=== PATIENT | male | born 1980 | race Caucasian/White ===

== ENCOUNTER 2018-03-04 11:07 | Emergency (ER) | payer MEDICARE, MEDICAID ==
[~2018-03-04] VITALS: Ht 177.8 cm; Wt 77.0 kg
[~2018-03-04 11:07] MED LIST: BUPR1FIL3 PO; CLON0.1T20 PO; DIVA250T8 PO; HYDR-3686 PO; IBUP-1984 PO; LITH150C8 PO; NICO-687 TD; OMEP-50 PO; QUET100T33 PO
[2018-03-04 11:29] LABS: BASOPHILS % (AUTO) 0.7 % (0-1); EOSINOPHILS # (AUTO) 0.1 X10'3 (0-0.9); EOSINOPHILS % (AUTO) 1.6 % (0-6); HEMATOCRIT 43.3 % (42.0-52.0); HEMOGLOBIN 15.1 g/dl (14.0-17.9); LYMPHOCYTES # (AUTO) 2.1 X10'3 (1.1-4.8); MEAN CORPUSCULAR HGB CONC 34.8 % (33.0-36.5); MEAN PLATELET VOLUME 10.2 FL (7.4-10.4); MONOCYTES # (AUTO) 0.4 X10'3 (0-0.9); MONOCYTES % (AUTO) 5.7 % (2-12); NEUTROPHILS # (AUTO) 3.6 X10'3 (1.8-7.7); PLATELET COUNT 201 X10'3 (140-440); RED BLOOD COUNT 5.04 X10'6 (4.70-6.10); RED CELL DISTRIBUTION WIDTH 13.9 % (11.5-14.5); WHITE BLOOD COUNT 6.3 X10'3 (4.5-11.0)
[2018-03-04 11:39] LABS: PARTIAL THROMBOPLASTIN TIME 25 SECONDS (22-32); PROTHROMBIN TIME 10.1 SECONDS (9.0-12.0)
[2018-03-04 11:43] LABS: ALANINE AMINOTRANSFERASE 49 U/L (12-78); ALKALINE PHOSPHATASE 85 IU/L (46-116); ANION GAP 7 (8-16); ASPARTATE AMINO TRANSFERASE 20 U/L (10-37); BILIRUBIN,TOTAL 0.3 MG/DL (0.1-1.0); BLOOD UREA NITROGEN 16 MG/DL (7-18); BUN/CREATININE RATIO 16.2 (5.4-32.0); CALCIUM 9.5 MG/DL (8.5-10.1); CHLORIDE 105 MMOL/L (99-107); CREATININE 0.99 MG/DL (0.60-1.10); GLUCOSE 82 MG/DL (70-104); POTASSIUM 4.8 MMOL/L (3.5-5.1); SODIUM 142 MMOL/L (135-145); TOTAL CARBON DIOXIDE 29.7 MMOL/L (24-32); TOTAL PROTEIN 8.1 G/DL (6.4-8.2); eGFR 85 ML/MIN
[2018-03-04] MEDS ORDERED: ibuprofen tablet 400 MG TABLET PO ONE (13:25)
[2018-03-04 13:50] VITALS: BP 106/71
== END 2018-03-04 14:47 | disposition home or self-care (01) ==
LOC: ER 11:07
DX: R07.9 Chest pain, unspecified (principal); R11.0 Nausea; M25.512 Pain in left shoulder; Z88.0 Allergy status to penicillin; Z91.040 Latex allergy status; Z79.899 Other long term (current) drug therapy; F12.10 Cannabis abuse, uncomplicated; F15.10 Other stimulant abuse, uncomplicated; F11.10 Opioid abuse, uncomplicated; Z95.1 Presence of aortocoronary bypass graft; Z90.49 Acquired absence of other specified parts of digestive tract
CPT/HCPCS: 36415; 71045; 80053; 84484; 85025; 85610; 85730; 93005; 99285

== ENCOUNTER 2018-05-15 12:12 | Emergency (ER) | payer MEDICARE, MEDICAID ==
[~2018-05-15] VITALS: Ht 177.8 cm; Wt 95.0 kg
[2018-05-15 13:04] LABS: BASOPHILS % (AUTO) 0.6 % (0-1); EOSINOPHILS # (AUTO) 0.3 X10'3 (0-0.9); EOSINOPHILS % (AUTO) 3.9 % (0-6); HEMATOCRIT 43.4 % (42.0-52.0); HEMOGLOBIN 14.9 g/dl (14.0-17.9); LYMPHOCYTES # (AUTO) 2.8 X10'3 (1.1-4.8); LYMPHOCYTES % (AUTO) 34.6 % (21-51); MEAN CORPUSCULAR HEMOGLOBIN 29.7 PG (27.0-31.0); MEAN CORPUSCULAR HGB CONC 34.3 % (33.0-36.5); MEAN CORPUSCULAR VOLUME 86.8 FL (78-98); MEAN PLATELET VOLUME 9.7 FL (7.4-10.4); MONOCYTES # (AUTO) 0.6 X10'3 (0-0.9); MONOCYTES % (AUTO) 7.5 % (2-12); NEUTROPHILS # (AUTO) 4.4 X10'3 (1.8-7.7); NEUTROPHILS % (AUTO) 53.4 % (42-75); PLATELET COUNT 282 X10'3 (140-440); RED CELL DISTRIBUTION WIDTH 13.4 % (11.5-14.5); WHITE BLOOD COUNT 8.2 X10'3 (4.5-11.0)
[2018-05-15 13:12] LABS: PROTHROMBIN TIME 10.4 SECONDS (9.0-12.0)
[2018-05-15 13:17] LABS: ALANINE AMINOTRANSFERASE 30 U/L (12-78); ALKALINE PHOSPHATASE 89 IU/L (46-116); ANION GAP 7 (8-16); ASPARTATE AMINO TRANSFERASE 20 U/L (10-37); BILIRUBIN,TOTAL 0.3 MG/DL (0.1-1.0); BLOOD UREA NITROGEN 23 MG/DL (7-18); BUN/CREATININE RATIO 22.1 (5.4-32.0); CALCIUM 9.5 MG/DL (8.5-10.1); CHLORIDE 100 MMOL/L (99-107); CREATININE 1.04 MG/DL (0.60-1.10); GLUCOSE 113 MG/DL (70-104); POTASSIUM 3.9 MMOL/L (3.5-5.1); SODIUM 136 MMOL/L (135-145); TOTAL CARBON DIOXIDE 29.1 MMOL/L (24-32); eGFR 80 ML/MIN
[2018-05-15] MEDS ORDERED: ketorolac trometh inj. 60 MG/2 ML VIAL IM ONE (14:05)
[2018-05-15 14:40] LABS: CLARITY,URINE CLEAR (Clear); COLOR,URINE YELLOW (Yellow); GLUCOSE, URINE NEGATIVE (Neg); KETONES,URINE NEGATIVE (Neg); LEUKOCYTE ESTERASE ,URINE NEGATIVE (Neg); NITRITES, URINE NEGATIVE (Neg); OCCULT BLOOD,URINE NEGATIVE (Neg); PROTEIN,URINE NEGATIVE (Neg); UROBILINOGEN,URINE 0.2 E.U/dL (0.2-1.0)
[2018-05-15 14:45] LABS: UA COLLECTION TYPE CLN CATCH MIDSTREAM
[2018-05-15 15:33] VITALS: BP 137/72
== END 2018-05-15 15:35 | disposition home or self-care (01) ==
LOC: ER 12:13
DX: M54.5 Low back pain (principal); N23 Unspecified renal colic; I25.10 Atherosclerotic heart disease of native coronary artery without angina pectoris; I10 Essential (primary) hypertension; I25.2 Old myocardial infarction; J45.909 Unspecified asthma, uncomplicated; F12.90 Cannabis use, unspecified, uncomplicated; F15.90 Other stimulant use, unspecified, uncomplicated; Z86.73 Personal history of transient ischemic attack (TIA), and cerebral infarction without residual deficits; Z90.49 Acquired absence of other specified parts of digestive tract; Z98.890 Other specified postprocedural states; Z88.0 Allergy status to penicillin; Z91.040 Latex allergy status; Z79.899 Other long term (current) drug therapy
CPT/HCPCS: 36415; 80053; 81003; 85025; 85610; 96372; 99284; J1885

== ENCOUNTER 2019-11-23 14:18 | Emergency (ER) | payer MEDICARE, MEDICAID ==
[~2019-11-23] VITALS: Ht 177.8 cm; Wt 99.5 kg
[~2019-11-23 14:18] MED LIST changes: +CLON0.1T2 PO; -CLON0.1T20 PO
[2019-11-23 14:30] VITALS: BP 137/80
[2019-11-23] MEDS ORDERED: ONDA4TAB6 PO (15:02)
[2019-11-23] MEDS ORDERED: PANT20TA3 PO (15:02)
--- NOTE | 2019-11-23 15:12 | NUR ---
PT IS NAUSEATED BUT NOT CURRENTLY VOMITTING, GAVE PT A GLASS OF WATER PER PO CHALLENGE ORDERS, PT DRINKING WATER WITH NO DIFFICULTIES NOW.
--- NOTE | 2019-11-23 15:20 | NUR ---
PT DRANK ONE GLASS OF WATER APPROX 240ML AND FILLED CUP AGAIN IN ROOM, PT TOLERATED WATER WELL, GAVE PT CRACKERS
== END 2019-11-23 15:30 | disposition home or self-care (01) ==
LOC: ER 14:19
DX: A08.4 Viral intestinal infection, unspecified (principal); R11.10 Vomiting, unspecified; R10.84 Generalized abdominal pain; I25.10 Atherosclerotic heart disease of native coronary artery without angina pectoris; I10 Essential (primary) hypertension; I25.2 Old myocardial infarction; J45.909 Unspecified asthma, uncomplicated; F12.90 Cannabis use, unspecified, uncomplicated; F15.90 Other stimulant use, unspecified, uncomplicated; F11.90 Opioid use, unspecified, uncomplicated; Z90.49 Acquired absence of other specified parts of digestive tract; Z98.890 Other specified postprocedural states; Z86.73 Personal history of transient ischemic attack (TIA), and cerebral infarction without residual deficits; Z88.0 Allergy status to penicillin; Z91.040 Latex allergy status; Z79.899 Other long term (current) drug therapy
CPT/HCPCS: 99283

== ENCOUNTER 2019-12-16 11:25 | Emergency (ER) | payer MEDICARE, MEDICAID ==
[~2019-12-16] VITALS: Ht 177.8 cm; Wt 100.0 kg
[~2019-12-16 11:25] MED LIST changes: +ONDA4TAB6 PO; +PANT20TA3 PO
[2019-12-16 12:32] LABS: BASOPHILS % (AUTO) 0.3 % (0-1); EOSINOPHILS % (AUTO) 0.3 % (0-6); HEMATOCRIT 44.5 % (42.0-52.0); HEMOGLOBIN 15.5 g/dl (14.0-17.9); LYMPHOCYTES % (AUTO) 11.8 % (21-51); MEAN CORPUSCULAR HEMOGLOBIN 30.1 PG (27.0-31.0); MEAN CORPUSCULAR VOLUME 86.2 FL (78-98); MEAN PLATELET VOLUME 10.2 FL (7.4-10.4); MONOCYTES # (AUTO) 0.6 X10'3 (0-0.9); NEUTROPHILS # (AUTO) 7.2 X10'3 (1.8-7.7); NEUTROPHILS % (AUTO) 80.6 % (42-75); PLATELET COUNT 242 X10'3 (140-440); RED BLOOD COUNT 5.16 X10'6 (4.70-6.10); WHITE BLOOD COUNT 8.9 X10'3 (4.5-11.0)
[2019-12-16 12:53] LABS: ANION GAP 9 (8-16); BLOOD UREA NITROGEN 8 MG/DL (7-18); CHLORIDE 101 MMOL/L (99-107); CREATININE 0.95 MG/DL (0.60-1.10); GLUCOSE 108 MG/DL (70-104); POTASSIUM 4.8 MMOL/L (3.5-5.1); SODIUM 138 MMOL/L (135-145); TOTAL CARBON DIOXIDE 28.4 MMOL/L (24-32)
[2019-12-16 12:54] LABS: ALANINE AMINOTRANSFERASE 57 U/L (12-78); ALBUMIN 4.5 G/DL (3.4-5.0); ALBUMIN/GLOBULIN RATIO 1.3 (1.1-1.5); ALKALINE PHOSPHATASE 74 IU/L (46-116); ASPARTATE AMINO TRANSFERASE 22 U/L (10-37); BILIRUBIN,TOTAL 0.5 MG/DL (0.1-1.0); BUN/CREATININE RATIO 8.4 (5.4-32.0); CALCIUM 9.3 MG/DL (8.5-10.1); eGFR 88 ML/MIN
[2019-12-16 13:07] LABS: CLARITY,URINE CLEAR (Clear); COLOR,URINE STRAW (Yellow); GLUCOSE, URINE NEGATIVE (Neg); KETONES,URINE NEGATIVE (Neg); LEUKOCYTE ESTERASE ,URINE NEGATIVE (Neg); NITRITES, URINE NEGATIVE (Neg); OCCULT BLOOD,URINE NEGATIVE (Neg); PH,URINE 6.5 (4.8-8.0); PROTEIN,URINE NEGATIVE (Neg); UROBILINOGEN,URINE 0.2 E.U/dL (0.2-1.0)
[2019-12-16 13:08] LABS: ETHANOL < 0.010 GM/DL (0.0-0.010)
[2019-12-16 13:09] LABS: UA COLLECTION TYPE CLN CATCH MIDSTREAM
[2019-12-16 13:22] LABS: URINE AMPHETAMINE SCREEN NEGATIVE (Neg); URINE BARBITUATE SCREEN NEGATIVE (Neg); URINE BENZODIAZEPINES SCREEN NEGATIVE (Neg); URINE CANNABINOID SCREEN NEGATIVE (Neg); URINE COCAINE SCREEN NEGATIVE (Neg); URINE METHADONE SCREEN NEGATIVE (Neg); URINE OPIATE SCREEN NEGATIVE (Neg); URINE PHENCYCLIDINE SCREEN NEGATIVE (Neg)
[2019-12-16 13:35] VITALS: BP 137/91
--- NOTE | 2019-12-16 14:10 | NUR ---
PACKET FAXED TO [facility]
[2019-12-16] MEDS ORDERED: VENL150C58 PO (17:30)
[2019-12-16] MEDS ORDERED: seroquel PO (17:40)
[2019-12-16] MEDS ORDERED: DIVA500T40 PO (17:40)
[2019-12-16] MEDS ORDERED: LITH300C PO (17:40)
[2019-12-16] MEDS ORDERED: divalproex sodium PO (17:40)
[2019-12-19] MEDS ORDERED: ATOM40CA PO (11:32)
[2019-12-19] MEDS ORDERED: NICO-687 TOP (13:08)
== END 2019-12-16 17:03 ==
LOC: ER 11:26
DX: F31.9 Bipolar disorder, unspecified (principal); F79 Unspecified intellectual disabilities; I25.10 Atherosclerotic heart disease of native coronary artery without angina pectoris; I10 Essential (primary) hypertension; I25.2 Old myocardial infarction; J45.909 Unspecified asthma, uncomplicated; F12.90 Cannabis use, unspecified, uncomplicated; F15.90 Other stimulant use, unspecified, uncomplicated; F11.90 Opioid use, unspecified, uncomplicated; Z90.49 Acquired absence of other specified parts of digestive tract; Z86.73 Personal history of transient ischemic attack (TIA), and cerebral infarction without residual deficits; Z98.890 Other specified postprocedural states; Z88.0 Allergy status to penicillin; Z91.040 Latex allergy status; Z79.899 Other long term (current) drug therapy
CPT/HCPCS: 36415; 80053; 80305; 80320; 81003; 84443; 85025; 99285

== ENCOUNTER 2020-03-02 11:26 | Emergency (ER) | payer MEDICARE, MEDICAID ==
[~2020-03-02] VITALS: Ht 177.8 cm; Wt 64.4 kg
[~2020-03-02 11:26] MED LIST changes: -CLON0.1T2 PO; -DIVA250T8 PO; +DIVA500T40 PO; -HYDR-3686 PO; -IBUP-1984 PO; -LITH150C8 PO; +LITH300C PO; -NICO-687 TD; -ONDA4TAB6 PO; -PANT20TA3 PO; -QUET100T33 PO; +VENL150C58 PO; +divalproex sodium PO; +seroquel PO
[2020-03-02 11:32] VITALS: BP 160/86
[2020-03-02] MEDS ORDERED: CLIN150C2 PO (12:20)
== END 2020-03-02 12:28 | disposition home or self-care (01) ==
LOC: ER 11:27
DX: K04.7 Periapical abscess without sinus (principal); K02.9 Dental caries, unspecified; I25.10 Atherosclerotic heart disease of native coronary artery without angina pectoris; I10 Essential (primary) hypertension; I25.2 Old myocardial infarction; J45.909 Unspecified asthma, uncomplicated; F31.9 Bipolar disorder, unspecified; F12.90 Cannabis use, unspecified, uncomplicated; F15.90 Other stimulant use, unspecified, uncomplicated; F11.90 Opioid use, unspecified, uncomplicated; Z90.49 Acquired absence of other specified parts of digestive tract; Z98.890 Other specified postprocedural states; Z86.73 Personal history of transient ischemic attack (TIA), and cerebral infarction without residual deficits; Z98.86 Personal history of breast implant removal; Z88.0 Allergy status to penicillin; Z91.040 Latex allergy status; Z79.2 Long term (current) use of antibiotics; Z79.899 Other long term (current) drug therapy
CPT/HCPCS: 99283

== ENCOUNTER 2021-04-07 08:43 | Emergency (ER) | payer MEDICARE, MEDICAID ==
[~2021-04-07] VITALS: Ht 177.8 cm; Wt 95.5 kg
[2021-04-07 08:47] VITALS: BP 151/89
[2021-04-07] MEDS ORDERED: AZIT-72 PO (09:09)
[2021-04-07] MEDS ORDERED: IBUP-1984 PO (09:09)
== END 2021-04-07 09:20 | disposition home or self-care (01) ==
LOC: ER 08:43
DX: H66.92 Otitis media, unspecified, left ear (principal); R42 Dizziness and giddiness; H92.01 Otalgia, right ear; I25.10 Atherosclerotic heart disease of native coronary artery without angina pectoris; I10 Essential (primary) hypertension; I25.2 Old myocardial infarction; J45.909 Unspecified asthma, uncomplicated; F31.9 Bipolar disorder, unspecified; F12.90 Cannabis use, unspecified, uncomplicated; F15.90 Other stimulant use, unspecified, uncomplicated; Z86.73 Personal history of transient ischemic attack (TIA), and cerebral infarction without residual deficits; Z90.49 Acquired absence of other specified parts of digestive tract; Z98.890 Other specified postprocedural states; Z88.0 Allergy status to penicillin; Z91.040 Latex allergy status; Z79.899 Other long term (current) drug therapy
CPT/HCPCS: 99283

== ENCOUNTER 2021-04-28 14:27 | Emergency (ER) | payer MEDICARE, MEDICAID ==
[~2021-04-28] VITALS: Ht 177.8 cm; Wt 89.6 kg
[2021-04-28 14:57] VITALS: BP 137/82
[2021-04-28] MEDS ORDERED: DOXY100C2 PO (15:31)
[2021-04-28] MEDS ORDERED: COROTSUS RIGHT EAR (15:31)
== END 2021-04-28 16:03 | disposition home or self-care (01) ==
LOC: ER 14:28
DX: H66.93 Otitis media, unspecified, bilateral (principal); I25.10 Atherosclerotic heart disease of native coronary artery without angina pectoris; I10 Essential (primary) hypertension; I25.2 Old myocardial infarction; J45.909 Unspecified asthma, uncomplicated; Z86.73 Personal history of transient ischemic attack (TIA), and cerebral infarction without residual deficits; F12.90 Cannabis use, unspecified, uncomplicated; F11.90 Opioid use, unspecified, uncomplicated; F15.90 Other stimulant use, unspecified, uncomplicated; Z95.1 Presence of aortocoronary bypass graft; Z90.49 Acquired absence of other specified parts of digestive tract; Z98.890 Other specified postprocedural states; Z91.040 Latex allergy status; Z88.0 Allergy status to penicillin; Z79.2 Long term (current) use of antibiotics; Z79.899 Other long term (current) drug therapy
CPT/HCPCS: 99283

== ENCOUNTER 2021-10-08 20:32 | Emergency (ER) | payer MEDICARE, MEDICAID ==
[~2021-10-08] VITALS: Ht 177.8 cm; Wt 95.0 kg
[~2021-10-08 20:32] MED LIST changes: +COROTSUS RIGHT EAR
[2021-10-08 20:44] VITALS: BP 131/88
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
== END 2021-10-09 01:45 | disposition left against medical advice (07) ==
LOC: ER 20:33
DX: B08.4 Enteroviral vesicular stomatitis with exanthem (principal); Z53.21 Procedure and treatment not carried out due to patient leaving prior to being seen by health care provider

== ENCOUNTER 2022-07-01 11:50 | Emergency (ER) | payer MEDICARE, MEDICAID ==
[~2022-07-01] VITALS: Ht 177.8 cm; Wt 90.9 kg
[~2022-07-01 11:50] MED LIST changes: -OMEP-50 PO; +OMEP20CA16 PO
[2022-07-01 12:05] VITALS: BP 117/84
[2022-07-01] MEDS ORDERED: BEBTELOVIMAB 175 MG/2 ML VIAL IV ONE (14:05)
[2022-07-01] MEDS ORDERED: ALBU6.7H9 INH (14:31)
[2022-07-01] MEDS ORDERED: BUDE180A INH (14:31)
[2022-07-01] MEDS ORDERED: PRED20TA PO (14:31)
== END 2022-07-01 15:45 | disposition home or self-care (01) ==
LOC: ER 11:50
DX: U07.1 COVID-19 (principal); I10 Essential (primary) hypertension; J45.909 Unspecified asthma, uncomplicated; K21.9 Gastro-esophageal reflux disease without esophagitis; F31.9 Bipolar disorder, unspecified; Z90.49 Acquired absence of other specified parts of digestive tract; F12.90 Cannabis use, unspecified, uncomplicated; Z88.0 Allergy status to penicillin; Z91.040 Latex allergy status
CPT/HCPCS: 87635; 99283; C9803; M0222; Q0222

== ENCOUNTER 2022-08-13 17:00 | Emergency (ER) | payer MEDICARE, MEDICAID ==
[~2022-08-13] VITALS: Ht 177.8 cm; Wt 88.5 kg
[~2022-08-13 17:00] MED LIST changes: +ALBU6.7H14 INH; +BUDE180A INH
[2022-08-13 17:37] VITALS: BP 120/78
== END 2022-08-13 21:48 | disposition home or self-care (01) ==
LOC: ER 17:00
DX: M25.511 Pain in right shoulder (principal); I11.9 Hypertensive heart disease without heart failure; K21.9 Gastro-esophageal reflux disease without esophagitis; I11.0 Hypertensive heart disease with heart failure; F31.9 Bipolar disorder, unspecified; F12.10 Cannabis abuse, uncomplicated; Z88.0 Allergy status to penicillin; Z79.899 Other long term (current) drug therapy; Z91.040 Latex allergy status
CPT/HCPCS: 73030; 99283

== ENCOUNTER 2022-10-07 10:03 | Emergency (ER) | payer MEDICARE, MEDICAID ==
[~2022-10-07] VITALS: Ht 177.8 cm; Wt 81.8 kg
[2022-10-07 10:18] VITALS: BP 166/103
[2022-10-07] MEDS ORDERED: ondansetron 4mg rapidly disintigrating tab PO ONE ×2 (10:30→12:55)
[2022-10-07 11:40] LABS: HEMOGLOBIN 16.1 g/dl (14.0-17.9); NEUTROPHILS # (AUTO) 5.2 X10'3 (1.8-7.7)
[2022-10-07 11:42] LABS: BASOPHILS % (AUTO) 0.6 % (0-1); EOSINOPHILS % (AUTO) 0.5 % (0-6); HEMATOCRIT 47.7 % (42.0-52.0); LYMPHOCYTES # (AUTO) 0.8 X10'3 (1.1-4.8); LYMPHOCYTES % (AUTO) 12.5 % (21-51); MEAN CORPUSCULAR HGB CONC 33.8 g/dL (33.0-36.5); MEAN CORPUSCULAR VOLUME 91.5 FL (78-98); MEAN PLATELET VOLUME 10.2 FL (7.4-10.4); MONOCYTES # (AUTO) 0.2 X10'3 (0-0.9); MONOCYTES % (AUTO) 3.7 % (2-12); NEUTROPHILS % (AUTO) 82.7 % (42-75); PLATELET COUNT 187 X10'3 (140-440); RED BLOOD COUNT 5.21 X10'6 (4.70-6.10); RED CELL DISTRIBUTION WIDTH 13.1 % (11.5-14.5); WHITE BLOOD COUNT 6.3 X10'3 (4.5-11.0)
[2022-10-07 12:00] LABS: ALANINE AMINOTRANSFERASE 71 U/L (12-78); ALBUMIN 4.1 G/DL (3.4-5.0); ALBUMIN/GLOBULIN RATIO 1.1 (1.1-1.5); ALKALINE PHOSPHATASE 86 IU/L (46-116); ANION GAP 6 (8-16); ASPARTATE AMINO TRANSFERASE 50 U/L (10-37); BILIRUBIN,TOTAL 0.3 MG/DL (0.1-1.0); BLOOD UREA NITROGEN 18 MG/DL (7-18); BUN/CREATININE RATIO 20.2 (5.4-32.0); CALCIUM 9.5 MG/DL (8.5-10.1); CHLORIDE 102 MMOL/L (99-107); CREATININE 0.89 MG/DL (0.60-1.10); GLUCOSE 121 MG/DL (70-104); LIPASE 85 U/L (73-393); POTASSIUM 4.6 MMOL/L (3.5-5.1); SODIUM 139 MMOL/L (135-145); TOTAL CARBON DIOXIDE 30.6 MMOL/L (24-32); TOTAL PROTEIN 7.9 G/DL (6.4-8.2); eGFR > 90 ML/MIN
[2022-10-07] MEDS ORDERED: ONDA4TAB12 PO (12:54)
== END 2022-10-07 13:06 | disposition home or self-care (01) ==
LOC: ER 10:04
DX: B34.9 Viral infection, unspecified (principal); R11.2 Nausea with vomiting, unspecified; I10 Essential (primary) hypertension; J45.909 Unspecified asthma, uncomplicated; K21.9 Gastro-esophageal reflux disease without esophagitis; N17.9 Acute kidney failure, unspecified; F31.9 Bipolar disorder, unspecified; Z88.0 Allergy status to penicillin; Z91.040 Latex allergy status; Z90.49 Acquired absence of other specified parts of digestive tract
CPT/HCPCS: 36415; 80053; 83690; 85025; 99283

== ENCOUNTER 2023-01-31 17:06 | Emergency (ER) | payer OTHER, MEDICARE, MEDICAID ==
[~2023-01-31] VITALS: Ht 177.8 cm; Wt 81.8 kg
[~2023-01-31 17:06] MED LIST changes: +ONDA4TAB12 PO
[2023-01-31 17:22] VITALS: BP 131/108
[2023-01-31] MEDS ORDERED: IBUP-1986 PO (19:19)
== END 2023-01-31 20:01 | disposition home or self-care (01) ==
LOC: ER 17:07
DX: M79.601 Pain in right arm (principal); G89.29 Other chronic pain; I25.10 Atherosclerotic heart disease of native coronary artery without angina pectoris; I10 Essential (primary) hypertension; I25.2 Old myocardial infarction; J45.909 Unspecified asthma, uncomplicated; K21.9 Gastro-esophageal reflux disease without esophagitis; F31.9 Bipolar disorder, unspecified; F12.90 Cannabis use, unspecified, uncomplicated; Z90.49 Acquired absence of other specified parts of digestive tract; Z98.890 Other specified postprocedural states; Z86.73 Personal history of transient ischemic attack (TIA), and cerebral infarction without residual deficits; Z88.0 Allergy status to penicillin; Z91.040 Latex allergy status; Z79.899 Other long term (current) drug therapy
CPT/HCPCS: 99284

== ENCOUNTER 2023-05-22 10:28 | Emergency (ER) | payer OTHER, MEDICARE, MEDICAID ==
[~2023-05-22] VITALS: Ht 177.8 cm; Wt 97.0 kg
[~2023-05-22 10:28] MED LIST changes: +IBUP-1986 PO
[2023-05-22 10:44] VITALS: BP 151/95
[2023-05-22] MEDS ORDERED: bacitracin 15gm ointment TP ONE (10:50)
== END 2023-05-22 11:06 | disposition home or self-care (01) ==
LOC: ER 10:28
DX: S61.412A Laceration without foreign body of left hand, initial encounter (principal); I10 Essential (primary) hypertension; K21.9 Gastro-esophageal reflux disease without esophagitis; J45.909 Unspecified asthma, uncomplicated; N17.9 Acute kidney failure, unspecified; F31.9 Bipolar disorder, unspecified; Z88.0 Allergy status to penicillin; Z91.040 Latex allergy status; Z90.49 Acquired absence of other specified parts of digestive tract; X58.XXXA Exposure to other specified factors, initial encounter; Y93.89 Activity, other specified; Y92.89 Other specified places as the place of occurrence of the external cause; Y99.8 Other external cause status
CPT/HCPCS: 99282; A6223; A6258; A6449

== ENCOUNTER 2023-07-27 08:16 | Emergency (ER) | payer OTHER, MEDICARE, MEDICAID ==
[~2023-07-27] VITALS: Ht 177.8 cm; Wt 102.3 kg
[2023-07-27 08:23] VITALS: BP 154/92; PULSE 76; RESP 19; TEMP 97.8; O2SAT 98
[2023-07-27] MEDS ORDERED: CEPH-585 PO (09:27)
[2023-07-27] MEDS ORDERED: SULF1TAB49 PO (09:27)
[2023-07-27] MEDS ORDERED: NAPR-56 PO (09:27)
== END 2023-07-27 09:48 | disposition home or self-care (01) ==
LOC: ER 08:16
DX: L03.116 Cellulitis of left lower limb (principal); I10 Essential (primary) hypertension; J45.909 Unspecified asthma, uncomplicated; K21.9 Gastro-esophageal reflux disease without esophagitis; F31.9 Bipolar disorder, unspecified; F12.90 Cannabis use, unspecified, uncomplicated; Z88.0 Allergy status to penicillin; Z91.040 Latex allergy status; Z79.899 Other long term (current) drug therapy; Z79.1 Long term (current) use of non-steroidal anti-inflammatories (NSAID); Z90.49 Acquired absence of other specified parts of digestive tract
CPT/HCPCS: 99283

== ENCOUNTER 2023-09-21 10:08 | Emergency (ER) | payer OTHER, MEDICARE, MEDICAID ==
[~2023-09-21] VITALS: Ht 177.8 cm; Wt 93.1 kg
[~2023-09-21 10:08] MED LIST changes: +CEPH-585 PO
[2023-09-21 10:11] VITALS: BP 134/92; PULSE 81; RESP 18; TEMP 97.8; O2SAT 98
== END 2023-09-21 12:02 | disposition home or self-care (01) ==
LOC: ER 10:08
DX: B07.0 Plantar wart (principal); I10 Essential (primary) hypertension; J45.909 Unspecified asthma, uncomplicated; K21.9 Gastro-esophageal reflux disease without esophagitis; F31.9 Bipolar disorder, unspecified; F12.90 Cannabis use, unspecified, uncomplicated; Z88.0 Allergy status to penicillin; Z91.040 Latex allergy status; Z79.899 Other long term (current) drug therapy; Z79.2 Long term (current) use of antibiotics; Z90.49 Acquired absence of other specified parts of digestive tract
CPT/HCPCS: 11200; 99284

== ENCOUNTER 2023-11-19 12:33 | Emergency (ER) | payer OTHER, MEDICARE, MEDICAID ==
[~2023-11-19] VITALS: Ht 177.8 cm; Wt 90.9 kg
[2023-11-19 12:41] VITALS: BP 154/93; PULSE 97; RESP 16; TEMP 97.9; O2SAT 97
[2023-11-19] MEDS ORDERED: CEFD300C3 PO (13:23)
== END 2023-11-19 13:31 | disposition home or self-care (01) ==
LOC: ER 12:34
DX: H66.001 Acute suppurative otitis media without spontaneous rupture of ear drum, right ear (principal); I11.0 Hypertensive heart disease with heart failure; J45.909 Unspecified asthma, uncomplicated; K21.9 Gastro-esophageal reflux disease without esophagitis
CPT/HCPCS: 99283

== ENCOUNTER 2023-12-12 20:04 | Emergency (ER) | payer MEDICARE, MEDICAID ==
[~2023-12-12] VITALS: Ht 177.8 cm; Wt 95.5 kg
[2023-12-12 20:10] VITALS: BP 144/93; PULSE 75; RESP 16; TEMP 97.6; O2SAT 99
[2023-12-12] MEDS ORDERED: NAPR-56 PO (21:01)
[2023-12-12] MEDS ORDERED: DOXY-1 PO (21:01)
== END 2023-12-12 21:34 | disposition home or self-care (01) ==
LOC: ER 20:05
DX: K04.7 Periapical abscess without sinus (principal); I11.0 Hypertensive heart disease with heart failure; K21.9 Gastro-esophageal reflux disease without esophagitis; F31.9 Bipolar disorder, unspecified; Z88.0 Allergy status to penicillin; Z91.040 Latex allergy status; Z79.899 Other long term (current) drug therapy
CPT/HCPCS: 99283

== ENCOUNTER 2023-12-22 13:19 | Emergency (ER) | payer BC, MEDICARE, MEDICAID ==
[~2023-12-22] VITALS: Ht 177.8 cm; Wt 93.2 kg
[~2023-12-22 13:19] MED LIST changes: +DOXY-1 PO; +NAPR-56 PO
[2023-12-22 13:29] VITALS: BP 131/96; PULSE 82; TEMP 97.9; O2SAT 100
[2023-12-22] MEDS ORDERED: ketorolac trometh inj. 60 MG/2 ML VIAL IM ONE (13:55)
[2023-12-22 14:24] VITALS: RESP 18
== END 2023-12-22 16:51 | disposition left against medical advice (07) ==
LOC: ER 13:19
DX: R51.9 Headache, unspecified (principal); Z53.21 Procedure and treatment not carried out due to patient leaving prior to being seen by health care provider
CPT/HCPCS: 96372; 99281; J1885

== ENCOUNTER 2024-09-16 13:43 | Emergency (ER) | payer OTHER, MEDICARE ==
[~2024-09-16] VITALS: Ht 177.8 cm; Wt 95.5 kg
[~2024-09-16 13:43] MED LIST changes: -CEPH-585 PO; -DOXY-1 PO; -NAPR-56 PO; +ONDA-243 PO; -ONDA4TAB12 PO
[2024-09-16 13:49] VITALS: BP 143/81; PULSE 96; O2SAT 98
[2024-09-16 15:27] VITALS: RESP 16
[2024-09-16] MEDS: ketorolac trometh 30MG/ML vial 30 MG/ML VIAL IM ONE (15:27)
[2024-09-16 15:28] VITALS: TEMP 97.5
== END 2024-09-16 15:29 | disposition home or self-care (01) ==
LOC: ER 13:44
DX: M25.522 Pain in left elbow (principal); K21.9 Gastro-esophageal reflux disease without esophagitis; J45.909 Unspecified asthma, uncomplicated; I25.10 Atherosclerotic heart disease of native coronary artery without angina pectoris; F12.90 Cannabis use, unspecified, uncomplicated; I25.2 Old myocardial infarction; I10 Essential (primary) hypertension; Z88.0 Allergy status to penicillin; Z91.040 Latex allergy status; Z79.899 Other long term (current) drug therapy; Z79.1 Long term (current) use of non-steroidal anti-inflammatories (NSAID); Z90.49 Acquired absence of other specified parts of digestive tract; Z86.73 Personal history of transient ischemic attack (TIA), and cerebral infarction without residual deficits; Z95.1 Presence of aortocoronary bypass graft; Z98.2 Presence of cerebrospinal fluid drainage device
CPT/HCPCS: 73080; 96372; 99283; J1885

== ENCOUNTER 2024-09-24 14:13 | Emergency (ER) | payer OTHER, MEDICARE ==
[~2024-09-24] VITALS: Ht 177.8 cm; Wt 93.2 kg
[2024-09-24 14:33] VITALS: BP 134/84; PULSE 73; TEMP 97.2; O2SAT 98
[2024-09-24 15:40] VITALS: RESP 16
== END 2024-09-24 15:42 | disposition home or self-care (01) ==
LOC: ER 14:13
DX: G91.9 Hydrocephalus, unspecified (principal); K21.9 Gastro-esophageal reflux disease without esophagitis; I25.2 Old myocardial infarction; I25.10 Atherosclerotic heart disease of native coronary artery without angina pectoris; I10 Essential (primary) hypertension; J45.909 Unspecified asthma, uncomplicated; Z88.0 Allergy status to penicillin; Z91.040 Latex allergy status; Z79.899 Other long term (current) drug therapy; Z79.1 Long term (current) use of non-steroidal anti-inflammatories (NSAID); Z86.73 Personal history of transient ischemic attack (TIA), and cerebral infarction without residual deficits; Z90.49 Acquired absence of other specified parts of digestive tract; Z95.1 Presence of aortocoronary bypass graft; Z98.2 Presence of cerebrospinal fluid drainage device
CPT/HCPCS: 70450; 99284

== ENCOUNTER 2024-10-23 13:19 | Emergency (ER) | payer OTHER, MEDICARE ==
[~2024-10-23] VITALS: Ht 177.8 cm; Wt 95.4 kg
[~2024-10-23 13:19] MED LIST changes: -BUDE180A INH; +BUDE180A5 INH
[2024-10-23 13:32] VITALS: BP 130/85
[2024-10-23] MEDS ORDERED: ALBU8HFA INH (14:46)
[2024-10-23] MEDS: ipratropium/albuterol 3ml nebule NEB ONE (14:56)
[2024-10-23 14:59] VITALS: PULSE 66; PULSE 89; RESP 18; RESP 19; O2SAT 100; O2SAT 98
[2024-10-23 15:03] VITALS: TEMP 97
== END 2024-10-23 15:05 | disposition home or self-care (01) ==
LOC: ER 13:20
DX: J45.909 Unspecified asthma, uncomplicated (principal); F10.10 Alcohol abuse, uncomplicated; I10 Essential (primary) hypertension; I25.10 Atherosclerotic heart disease of native coronary artery without angina pectoris; I25.2 Old myocardial infarction; K21.9 Gastro-esophageal reflux disease without esophagitis; Z88.0 Allergy status to penicillin; Z91.040 Latex allergy status; Z79.899 Other long term (current) drug therapy; Z79.1 Long term (current) use of non-steroidal anti-inflammatories (NSAID); Z86.73 Personal history of transient ischemic attack (TIA), and cerebral infarction without residual deficits; Z90.49 Acquired absence of other specified parts of digestive tract; Z95.1 Presence of aortocoronary bypass graft; Z98.2 Presence of cerebrospinal fluid drainage device
CPT/HCPCS: 94640; 94760; 99283; 99291

== ENCOUNTER 2025-07-25 12:30 | Emergency (ER) | payer MEDICARE, OTHER ==
[~2025-07-25] VITALS: Ht 177.8 cm; Wt 97.9 kg
[2025-07-25 12:39] VITALS: BP 137/92; PULSE 87; RESP 18; TEMP 97.9; O2SAT 98
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
--- NOTE | 2025-07-25 13:48 | RADIOLOGY REPORT ---
CLINICAL INDICATION: LT.FOOT PAIN TECHNIQUE: 3 radiographic views of the left foot were obtained. Comparison: DI ELBOW, COMPLETE (3VW MIN) on DOS: 09/16/24 FINDINGS/IMPRESSION: There is no evidence of acute fracture or dislocation. The visualized joint space is well maintained. The alignment is anatomical. There is no radiopaque foreign body.
== END 2025-07-25 14:23 | disposition home or self-care (01) ==
LOC: ER 12:30
DX: S93.492A Sprain of other ligament of left ankle, initial encounter (principal); I10 Essential (primary) hypertension; I25.10 Atherosclerotic heart disease of native coronary artery without angina pectoris; I25.2 Old myocardial infarction; J45.909 Unspecified asthma, uncomplicated; G89.29 Other chronic pain; F31.9 Bipolar disorder, unspecified; F12.90 Cannabis use, unspecified, uncomplicated; K21.9 Gastro-esophageal reflux disease without esophagitis; Z86.73 Personal history of transient ischemic attack (TIA), and cerebral infarction without residual deficits; Z88.0 Allergy status to penicillin; Z90.49 Acquired absence of other specified parts of digestive tract; Z91.040 Latex allergy status; Z95.1 Presence of aortocoronary bypass graft; V18.4XXA Pedal cycle driver injured in noncollision transport accident in traffic accident, initial encounter; Y93.55 Activity, bike riding; Y92.89 Other specified places as the place of occurrence of the external cause; Y99.8 Other external cause status
CPT/HCPCS: 29540; 73630; 99283; L1930

== ENCOUNTER 2025-07-30 12:31 | Emergency (ER) | payer OTHER ==
[~2025-07-30] VITALS: Ht 177.8 cm; Wt 94.8 kg
[2025-07-30 12:42] VITALS: BP 128/92; PULSE 85; RESP 18; O2SAT 98
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
[2025-07-30] MEDS ORDERED: SULF1TAB49 PO (13:49)
[2025-07-30] MEDS: sulfamethoxazole/trimethoprim DS (800/160mg) tablet PO ONE (14:09)
--- NOTE | 2025-07-30 14:19 | RADIOLOGY REPORT ---
CHEST RADIOGRAPH Indication: CHEST PAIN Technique: Single frontal view of the chest was obtained Comparison: None FINDINGS: Lines and Tubes: Right IJ approach central venous catheter in satisfactory position. There is questio nable additional tubular structure overlying the left lower neck and left upper to mid hemithorax suzan carlos artifact. Lungs: No focal consolidation. Pleura: No effusion. No pneumothorax. Cardiomediastinal contours: Unremarkable Bones: No acute osseous abnormality. IMPRESSION: No acute cardiopulmonary disease.
[2025-07-30 14:27] LABS: MEAN PLATELET VOLUME 9.0 FL (7.4-10.4); RED CELL DISTRIBUTION WIDTH 14.0 % (11.5-14.5)
[2025-07-30 14:50] LABS: CREATININE 0.92 MG/DL (0.60-1.10); PRO BRAIN NATRIURETIC PEPTIDE < 30 PG/ML (0-125); TOTAL CARBON DIOXIDE 30.5 MMOL/L (24-32); eCRCL 105 ML/MIN; eGFR 89 ML/MIN
[2025-07-30 15:04] VITALS: TEMP 97.3
== END 2025-07-30 15:07 | disposition home or self-care (01) ==
LOC: ER 12:31
DX: L03.116 Cellulitis of left lower limb (principal); R60.1 Generalized edema; J45.909 Unspecified asthma, uncomplicated; I25.2 Old myocardial infarction; F31.9 Bipolar disorder, unspecified; I25.10 Atherosclerotic heart disease of native coronary artery without angina pectoris; I10 Essential (primary) hypertension; G89.29 Other chronic pain; K21.9 Gastro-esophageal reflux disease without esophagitis; F12.90 Cannabis use, unspecified, uncomplicated; Z88.0 Allergy status to penicillin; Z91.040 Latex allergy status; Z95.1 Presence of aortocoronary bypass graft; Z90.49 Acquired absence of other specified parts of digestive tract; Z86.73 Personal history of transient ischemic attack (TIA), and cerebral infarction without residual deficits; Z79.899 Other long term (current) drug therapy; Z98.2 Presence of cerebrospinal fluid drainage device
CPT/HCPCS: 36415; 71045; 80048; 83880; 85025; 99284

== ENCOUNTER 2025-10-09 12:47 | Emergency (ER) | payer OTHER ==
[~2025-10-09] VITALS: Ht 177.8 cm; Wt 96.3 kg
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
[2025-10-09] MEDS ORDERED: ONDA-243 PO (14:53)
[2025-10-09 15:01] VITALS: BP 150/101; PULSE 99; RESP 16; TEMP 97.3; O2SAT 98
== END 2025-10-09 15:02 | disposition home or self-care (01) ==
LOC: ER 12:48
DX: S06.0X0A Concussion without loss of consciousness, initial encounter (principal); F31.9 Bipolar disorder, unspecified; K21.9 Gastro-esophageal reflux disease without esophagitis; I10 Essential (primary) hypertension; I25.10 Atherosclerotic heart disease of native coronary artery without angina pectoris; I25.2 Old myocardial infarction; J45.909 Unspecified asthma, uncomplicated; Z86.73 Personal history of transient ischemic attack (TIA), and cerebral infarction without residual deficits; Z88.0 Allergy status to penicillin; Z90.49 Acquired absence of other specified parts of digestive tract; Z91.040 Latex allergy status; Z98.2 Presence of cerebrospinal fluid drainage device; Y04.0XXA Assault by unarmed brawl or fight, initial encounter; Y93.89 Activity, other specified; Y92.89 Other specified places as the place of occurrence of the external cause; Y99.9 Unspecified external cause status
CPT/HCPCS: 99283